=== PATIENT | male | born 1960 | race Caucasian/White ===

== ENCOUNTER 2017-12-05 15:42 | Emergency (ER) | payer OTHER ==
[2017-12-05 15:53] VITALS: RESP 18; TEMP 97.6; BMI 32.5
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
[2017-12-05 17:11] LABS: URINE BILIRUBIN NEGATIVE (NEGATIVE); URINE BLOOD NEGATIVE (NEGATIVE); URINE GLUCOSE (UA) >=1000 mg/dL (NEGATIVE); URINE LEUKOCYTE ESTERASE NEGATIVE Leu/uL (NEGATIVE); URINE PROTEIN NEGATIVE mg/dL (<30 mg/dL)
[2017-12-05 17:12] LABS: URINE APPEARANCE CLEAR (CLEAR); URINE COLOR LIGHT YELLOW (YELLOW)
[2017-12-05 17:21] LABS: BASO # 0.05 K/mm3 (0.0-2.0); BASO % 0.6 % (0.0-3.0); EOS # 0.2 (0.0-0.7); EOS % 2.1 % (1.5-5.0); GRAN # 5.28 (1.4-6.5); GRAN % 61.9 % (50.0-68.0); HEMOGLOBIN 14.7 g/dL (14.0-18.0); LYMPH # 2.3 (1.2-3.4); LYMPH % 26.8 % (22.0-35.0); MEAN CELL VOLUME 89.1 fl (80.0-105.0); MEAN CORPUSCULAR HEMOGLOBIN 30.9 pg (25.0-35.0); MEAN CORPUSCULAR HGB CONC 34.8 g/dl (31.0-37.0); MEAN PLATELET VOLUME 10.6 fl (7.0-11.0); MONO # 0.7 (0.1-0.6); MONO % 8.6 % (1.0-6.0); RBC 4.75 10^6/uL (3.5-6.1); RED CELL DISTRIBUTION WIDTH 12.1 % (11.5-14.5); WHITE BLOOD COUNT 8.5 10^3/uL (4.5-11.0)
[2017-12-05 17:32] LABS: ALB/GLOB RATIO 1.1 (1.1-1.8); ALT/SGPT 46 U/L (7-56); AST/SGOT 41 U/L (17-59); BLOOD UREA NITROGEN 22 mg/dL (7-21); CALCIUM 9.9 mg/dL (8.4-10.5); GFR NON-AFRICAN AMERICAN > 60; INR 1.11; PARTIAL THROMBOPLASTIN TIME 30.3 Seconds (25.1-36.5); PROTHROMBIN TIME 12.7 SECONDS (9.4-12.5)
--- NOTE | 2017-12-05 17:39 | CT ---
Date of service: 12/05/2017 PROCEDURE: CT HEAD WITHOUT CONTRAST. HISTORY: dizziness COMPARISON: None available. TECHNIQUE: Axial computed tomography images were obtained through the head/brain without intravenous contrast. Radiation dose: Total exam DLP = 1474.5 mGy-cm. This CT exam was performed using one or more of the following dose reduction techniques: Automated exposure control, adjustment of the mA and/or kV according to patient size, and/or use of iterative reconstruction technique. FINDINGS: HEMORRHAGE: No intracranial hemorrhage. BRAIN: No mass effect or edema. Ctnh-ed-[id number] volume loss is noted. Foci of white matter hypodensities in the periventricular region are also noted likely represent chronic microvascular ischemic changes. VENTRICLES: Unremarkable. No hydrocephalus. CALVARIUM: Unremarkable. PARANASAL SINUSES: Unremarkable as visualized. No significant inflammatory changes. MASTOID AIR CELLS: Unremarkable as visualized. No inflammatory changes. OTHER FINDINGS: None. IMPRESSION: No evidence of acute intracranial hemorrhage mass effect or midline shift. Volume loss and suspicious for chronic microvascular white matter ischemic disease.
[2017-12-05 17:44] LABS: TROPONIN I < 0.01 ng/mL
[2017-12-05 18:33] VITALS: BP 124/68; PULSE 78; O2SAT 98
--- NOTE | 2017-12-06 05:52 | RAD ---
Date of service: 12/05/2017 PROCEDURE: CHEST RADIOGRAPH, 1 VIEW HISTORY: DIZZINESS COMPARISON: None available. FINDINGS: LUNGS: The lungs are well inflated and clear. PLEURA: No pneumothorax or pleural fluid seen. CARDIOVASCULAR: The heart is normal in size. Atherosclerotic aortic arch calcifications are present. OSSEOUS STRUCTURES: No significant abnormalities. VISUALIZED UPPER ABDOMEN: Normal. OTHER FINDINGS: None. IMPRESSION: No active pulmonary disease.
--- NOTE | 2017-12-06 06:08 | RAD ---
Date of service: 12/05/2017 PROCEDURE: Left Ankle Radiographs. HISTORY: pain COMPARISON: None FINDINGS: BONES: Bone alignment and mineralization are normal. There is no acute displaced fracture or bone destruction. JOINTS: Normal. Ankle mortise maintained. Talar dome intact SOFT TISSUES: Normal. OTHER FINDINGS: None. IMPRESSION: No acute fracture or dislocation.
--- NOTE | 2017-12-06 10:18 | CARD ---
APPROVED REPORT Date of service: 12/05/2017 EKG Measurement Heart [id number] ID [id number] <Conclusion> Normal sinus rhythm Possible Inferior infarct, age undetermined
--- NOTE | 2017-12-06 10:22 | RAD ---
Date of service: 12/05/2017 HISTORY: Back pain COMPARISON: No prior. FINDINGS: BONES: Bone alignment and mineralization are normal. There is no acute fracture or bone destruction. DISC SPACES: Mild multilevel degenerative disc disease with anterior spurring and mild reduced disc heights. SOFT TISSUES: Normal. OTHER FINDINGS: None. IMPRESSION: No acute fracture. Mild multilevel degenerative disc disease.
--- NOTE | 2017-12-06 10:22 | RAD ---
Date of service: 12/05/2017 PROCEDURE: Radiographs of the Lumbar Spine. HISTORY: Back pain COMPARISON: No prior. FINDINGS: BONES: There is normal alignment of the lumbar vertebral bodies. There is normal lumbar lordosis. There is no acute fracture, spondylolysis or spondylolisthesis. Bone mineralization is normal. DISC SPACES: There is mild multilevel degenerative disc disease with anterior spurring, reduced disc heights and multilevel facet arthropathy, worse at L5-S1. OTHER FINDINGS: None. IMPRESSION: No acute fracture, spondylolysis or spondylolisthesis. Mild multilevel degenerative disc disease, worse at L5-S1.
--- NOTE | 2017-12-06 10:23 | RAD ---
Date of service: 12/05/2017 PROCEDURE: Cervical Spine Radiographs. HISTORY: Pain. COMPARISON: None. FINDINGS: BONES: There is mild degenerative retrolisthesis of C3 on C4. There is straightening of the cervical spine with loss of normal cervical lordosis. Vertebral height is normal. Bone mineralization is normal. There is no acute fracture or traumatic anterior listhesis. The craniocervical junction is normal. The atlantoaxial joint normal. DISC SPACES: There is multilevel degenerative disc disease with anterior osteophytes, reduced disc heights and multilevel facet arthropathy, worse at C6-7. SOFT TISSUES: Normal. No prevertebral soft tissue swelling. OTHER FINDINGS: None. IMPRESSION: No acute fracture. Multilevel degenerative disc disease, worse at C6-7. Straightening of the cervical spine may be positional or related to muscle spasm.
== END 2017-12-05 18:30 | disposition home or self-care (01) ==
LOC: ED 15:42
DX: R42 Dizziness and giddiness (principal); S16.1XXA Strain of muscle, fascia and tendon at neck level, initial encounter; S39.012A Strain of muscle, fascia and tendon of lower back, initial encounter; V49.49XA Driver injured in collision with other motor vehicles in traffic accident, initial encounter; Y92.410 Unspecified street and highway as the place of occurrence of the external cause